=== PATIENT | male | born 1995 | race African-American/Black ===

== ENCOUNTER 2017-05-03 13:41 | Emergency (ER) | payer OTHER ==
[~2017-05-03] VITALS: Ht 175.3 cm; Wt 70.3 kg
--- NOTE | ~2017-05-03 | EKG ---
[place] [address] [address] [facility] [place] [place] [address] ELECTROCARDIOGRAM REPORT Name: WAYNE LINARES [id number] Admission: 05/03/17 Attend Phys: Discharge: 05/03/17 Date of : [birth year] Report #: [id number] THIS REPORT FOR: //name// [facility] ED Test Date: 2017-05-03 Test Time: 13:58:48 Pat Name: WAYNE LINARES Department: Room: Gender: Inside Sales Account Representative: Jaun VALE RN : 1995 Requested By: Yoon Gibson Order Number: [id number] MD: Delfin Ramírez Measurements Intervals [place] Rate: 64 P: 108 SD: 240 QRS: 75 QRSD: 95 T: -29 QT: 419 QTc: 433 Interpretive Statements Atrial-sensed ventricular-paced complexes No further analysis attempted due to paced rhythm Artifact in lead(s) I,II,III,aVR,aVL,aVF Compared to ECG 01/13/2011 12:36:00 Pacing is now present Electronically Signed On 05-04-2017 8:18:16 [employer] by Delfin Ramírez [email or web address] <ELECTRONICALLY SIGNED> By: Delfin Ramírez MD, [facility] 05/04/17 0818 [id number] Delfin Ramírez MD, [facility] /EPI
[~2017-05-03 13:41] MED LIST: NOHOMEMEDICATIONS
[2017-05-03 14:07] LABS: ABSOLUTE NEUTROPHILS 2.7 thou/uL (1.4-8.2); BASOPHILS 1.4 % (0.0-2.0); EOSINOPHILS 6.9 % (0.0-3.0); HEMATOCRIT 44.4 % (42.0-52.0); HEMOGLOBIN 14.9 gm/dL (14.0-18.0); MCH 31.6 pg (26.0-34.0); MCHC 33.5 g/dL (28.0-37.0); MCV 94.4 fL (80.0-100.0); MONOCYTES 6.9 % (1.0-8.0); PLATELET COUNT 137 thou/uL (150-400); POLYS 49.8 % (36.0-66.0); WBC 5.5 thou/uL (4.0-11.0)
[2017-05-03 14:15] LABS: ANION GAP 7 mmol/L (7-16); BUN 13 mg/dL (7-18); CHLORIDE 104 mmol/L (98-107); CO2 30 mmol/L (21-32); CREATININE 1.1 mg/dL (0.7-1.3); GLUCOSE 87 mg/dL (74-106); POTASSIUM 3.6 mmol/L (3.5-5.1); SODIUM 141 mmol/L (136-145)
[2017-05-03 14:25] LABS: ALBUMIN 4.6 g/dL (3.4-5.0); SGOT 26 U/L (15-37); SGPT 32 U/L (30-65); TOTAL BILIRUBIN 0.6 mg/dL (<0.1-1.0); TOTAL PROTEIN 8.2 g/dL (6.4-8.2); TROPONIN-I < 0.04 ng/mL (<0.06)
[2017-05-03 14:49] LABS: URINE BILIRUBIN NEGATIVE (Negative); URINE BLOOD NEGATIVE (Negative); URINE CLARITY CLEAR; URINE COLOR YELLOW; URINE GLUCOSE-RANDOM* NEGATIVE (Negative); URINE KETONES NEGATIVE (Negative); URINE LEUKOCYTES NEGATIVE (Negative); URINE NITRITE NEGATIVE (Negative); URINE PROTEIN (DIPSTICK) NEGATIVE (Negative); URINE SPECIFIC GRAVITY <= 1.005 (1.005-1.035); URINE UROBILINOGEN 0.2 E.U./dl (0.2-1.0)
[2017-05-03 15:00] LABS: AMP/METHAMP Negative (Negative); BARBITURATES Negative (Negative); BENZODIAZEPINES Negative (Negative); COCAINE Negative (Negative); METHADONE Negative (Negative); OPIATES Negative (Negative); PCP Negative (Negative)
[2017-05-03] MEDS ORDERED: CARAFATE 1 GM TA1 G1 PO (16:06)
[2017-05-03] MEDS ORDERED: LEVSIN0.125 MG PO (16:06)
[2017-05-03] MEDS ORDERED: ULTRAM 50MG TAB50 MG PO (16:06)
[2017-05-03] MEDS ORDERED: PEPCID20 MG PO (16:06)
== END 2017-05-03 16:53 | disposition home or self-care (01) ==
LOC: ER 13:41
PROVIDERS: Physician Assistant
DX: R07.89 Other chest pain (principal); R10.12 Left upper quadrant pain; Z95.0 Presence of cardiac pacemaker; F17.210 Nicotine dependence, cigarettes, uncomplicated; Z88.1 Allergy status to other antibiotic agents